=== PATIENT | male | born 1990 | race Caucasian/White ===

== ENCOUNTER 2018-02-17 15:44 | Emergency (ER) | payer SELFPAY ==
[~2018-02-17] VITALS: Ht 182.8 cm; Wt 81.6 kg
[~2018-02-17 15:44] MED LIST: ULTRAM50 MG PO; VIBRAMYCIN100 MG PO
[2018-02-17] MEDS ORDERED: Tobrex Ophth S2.5 ML OPH (16:12)
== END 2018-02-17 16:14 | disposition home or self-care (01) ==
LOC: ED 15:44
DX: H10.33 Unspecified acute conjunctivitis, bilateral (principal)

== ENCOUNTER → 2020-10-17 | Outpatient (CLI) | payer OTHER ==
[~2020-10-17] MED LIST changes: +Tobrex Ophth S2.5 ML OPH
== END | disposition home or self-care (01) ==
LOC: RAD 11:59
PROVIDERS: ATTEND Chiropractor Orthopedic
DX: M99.03 Segmental and somatic dysfunction of lumbar region (principal)